=== PATIENT | male | born 1965 | race Caucasian/White ===

== ENCOUNTER 2020-03-30 13:34 | Outpatient (CLI) | payer OTHER, SELFPAY ==
--- NOTE | ~2020-03-30 | CT_ITS ---
EXAMINATION: CT abdomen pelvis wo con DATE: 03/30/2020 14:14 INDICATION: Right flank pain for 2 weeks TECHNIQUE: Computed tomography (CT) of the abdomen and pelvis was performed without intravenous contr ast. The dose-length product was 1034.49 mGy-cm. Automated exposure control and iterative reconstruct ion technique were employed. COMPARISON: None. FINDINGS: Left lower lobe atelectasis. There is a 7 mm right middle lobe nodule. Heart size is normal . No significant pleural or pericardial effusion. No significant vascular abnormality. No lymphadenop athy. There is a right hydrocele. There is a 3.6 cm liver cyst. The spleen, pancreas, adrenal glands and kidneys are unremarkable. Small fat-containing umbilical hernia. No ureteral stones or hydronephr osis. Enlarged prostate gland. No abnormal pelvic masses or fluid collections. There is a small subce ntimeter hypodensity of the left kidney, most likely benign cysts. No renal or ureteral stones. No hy dronephrosis. Bladder is unremarkable. No acute osseous abnormality. IMPRESSION: 1. No acute abdominal abnormality. 2: 7 mm right middle lobe nodule. Follow-up low dose CT chest in 6 months recommended. Reviewed, dictated and finalized at location A. IMPRESSION: 1. No acute abdominal abnormality. 2: 7 mm right middle lobe nodule. Follow-up low dose CT chest in 6 months sang mmended.
== END 2020-03-30 13:35 | disposition home or self-care (01) ==
LOC: ANHIMG 13:53
DX: R10.9 Unspecified abdominal pain (principal); M54.5 Low back pain; R91.8 Other nonspecific abnormal finding of lung field
CPT/HCPCS: 74176

== ENCOUNTER 2020-09-22 17:36 | Outpatient (CLI) | payer OTHER, SELFPAY ==
--- NOTE | ~2020-09-22 | CT_ITS ---
EXAMINATION: CT lung screening DATE: 09/22/2020 18:13 INDICATION: PULMONARY NODULE TECHNIQUE: Computed tomography (CT) of the chest was performed without intravenous contrast. Addition al 3D reconstructions utilizing coronal maximum intensity projection (MIP) were performed. Automated exposure control and iterative reconstruction technique were employed. The dose-length product was 22 4.81 mGy-cm. COMPARISON: 03/30/2020 FINDINGS: By decrease in size of a previously 4 mm currently 3 mm right lower lobe nodule. Unchanged 5 x 3 mm r ight middle lobe nodule. Slight decrease in size of a now 5 mm, previously 6 mm pleural-based nodule right middle lobe and 6 mm previously 7 mm pleural-based nodule in the right lower lobe. Unchanged ba nd of discoid atelectasis/scarring in the left lower lobe. No pneumonia, pulmonary edema or pleural e ffusion. Arch size is normal. No pericardial effusion. Thoracic aorta is normal in caliber. No pathol ogically enlarged thoracic lymphadenopathy. 3.3 cm cyst in the right hepatic lobe. Mild thoracic spon dylosis. IMPRESSION: 1. No interval change or slight decrease in size of a few likely benign 6 mm or smaller right pulmona ry nodules. Could consider additional 18-24 months follow up is noncontrast chest CT. Reviewed, dictated and finalized at location A. [employer] IMPRESSION: 1. No interval change or slight decrease in size of a few likely benign 6 mm or smaller right pulmonary nodules. Could consider additional 18-24 months follow up is noncontrast chest CT.
== END 2020-09-22 17:37 | disposition home or self-care (01) ==
PROVIDERS: PCP Internal Medicine; Visit Provider Internal Medicine
DX: R91.1 Solitary pulmonary nodule (principal)
CPT/HCPCS: G0297

== ENCOUNTER 2023-01-23 12:02 | Emergency (ER) | payer OTHER, SELFPAY ==
[2023-01-23 12:10] VITALS: BP 124/73; PULSE 77; RESP 16; TEMP 36.8; O2SAT 98
--- NOTE | 2023-01-23 12:23 | ED.URI ---
HPI - URI/Sore Throat General Chief Complaint: Upper Respiratory Infection Stated Complaint: cough, congestion,sore throat Source: patient and RN notes reviewed History of Present Illness HPI Narrative: 37-year-old male presents to urgent care with complaints of congestion, bilateral ear fullness, intermittent dizziness, cough, and sore throat. Patient states that the symptoms since Monday without any relief. Patient denies any fevers, chills, chest pain, shortness of breath, or vomiting. Patient has been taking NyQuil at with minimal relief. Some parts of this dictation were generated by voice recognition software and may contain typographical and/or grammatical inaccuracies. Related Data Allergies Allergy/AdvReac Type Severity Reaction Status Date / Time cephalexin Allergy Unknown Skin Verified 01/23/23 12:09 Reaction Review of Systems Review of Systems: Pertinent positives and pertinent negatives per HPI. PMFSH Comments At the time of my signature, I reviewed and agree with the nursing past medical, surgical, social, and family history. There is no relevant family history pertinent to the patient complaint. Exam Narrative: GENERAL: This is a well-nourished, well-developed patient, in no apparent distress. HEAD: normocephalic, atraumatic. EYES: Sclera clear/white. Vision is grossly intact. EARS: External ears normal, auditory canals clear and without drainage, TMs normal without perforation. Hearing grossly intact. NOSE:congestion THROAT: Mucous membranes moist, posterior pharynx clear. NECK: Neck supple, non-tender without lymphadenopathy, masses or thyromegaly. CARDIOVASCULAR: Regular rate. RESPIRATORY: No respiratory distress GASTROINTESTINAL: Abdomen soft, non-tender, nondistended. Bowel sounds are active. No hepato-splenomegaly, or palpable masses. No guarding. SKIN: warm, intact with no suspicious lesions or rash, good texture and turgor. NEURO: awake, alert, and oriented to person, place and time. There were no obvious focal neurologic abnormalities. Course Course Level of Care: Express Care Visit Vital Signs Vital signs: Vital Signs Temperature 98.2 F 01/23/23 12:10 Pulse Rate 77 01/23/23 12:10 Respiratory Rate 16 01/23/23 12:10 Blood Pressure 124/73 01/23/23 12:10 Pulse Oximetry 98 01/23/23 12:10 Temperature 98.2 F 01/23/23 12:10 Pulse Rate 77 01/23/23 12:10 Respiratory Rate 16 01/23/23 12:10 Blood Pressure 124/73 01/23/23 12:10 Pulse Oximetry 98 01/23/23 12:10 reviewed. MDM - URI/Sore Throat MDM Narrative Medical decision making narrative: Return to urgent care or go to the ER for new or worsening symptoms. Avoid smoking/second-hand smoke. Continue to take Tylenol or Motrin for pain. Increase your Vitamin C intake. Use a humidifier or vaporizer at night. Take Medications as prescribed. Drink plenty of water. 8-10 glasses per day. Use flonase 2 times per day for 5 days then as needed Take mucinex 2 times per day and be sure to take with 8oz of water. Follow up with Primary provider if not getting better. Go to the ER for new or worsening symptoms. Differential Diagnosis Differential diagnosis: Likely upper respiratory infection, sinusitis and bronchitis Critical Care Time Critical Care Time Critical Care Time: No Discharge Plan Discharge Clinical Impression: Sinusitis Qualifiers: Sinusitis location: frontal Chronicity: acute Recurrence: not specified as recurrent Qualified Code(s): J01.10 - Acute frontal sinusitis, unspecified Patient Disposition: Home, Self-Care Condition: Stable Instructions: Antibiotic Form, Sinusitis (ED) Additional Instructions: Return to urgent care or go to the ER for new or worsening symptoms. Avoid smoking/second-hand smoke. Continue to take Tylenol or Motrin for pain. Increase your Vitamin C intake. Use a humidifier or vaporizer at night. Take Medications as prescribed. Drink ple
== END 2023-01-23 12:25 | disposition home or self-care (01) ==
PROVIDERS: Emergency Provider Nurse Practitioner Family; PCP Internal Medicine
DX: J01.10 Acute frontal sinusitis, unspecified (principal)
CPT/HCPCS: 99213; G0463